=== PATIENT | female | born 2000 | race Caucasian/White ===

== ENCOUNTER 2022-10-26 12:32 | Emergency (ER) | payer BC ==
[~2022-10-26] VITALS: Ht 157.5 cm; Wt 60.3 kg
[2022-10-26] MEDS ORDERED: NORETHIND-ETH1 EACH PO (12:52)
[2022-10-26] MEDS ORDERED: METRONIDAZOLE500 MG (12:53)
== END 2022-10-26 15:38 | disposition home or self-care (01) ==
LOC: ER 12:32
DX: S93.401A Sprain of unspecified ligament of right ankle, initial encounter (principal); W19.XXXA Unspecified fall, initial encounter; Y93.9 Activity, unspecified; Y92.89 Other specified places as the place of occurrence of the external cause; Y99.9 Unspecified external cause status